=== PATIENT | female | born 1960 ===

== ENCOUNTER 2017-05-10 09:43 | Emergency (ER) | payer MEDICARE, OTHER ==
[2017-05-10 09:49] VITALS: O2SAT 98
[2017-05-10 09:55] VITALS: BMI 21.7
--- NOTE | 2017-05-10 10:26 | ED PDOC ---
HPI: Skin/Bite Injury Chief Complaint (Nursing): Abnormal Skin Integrity History Per: Patient History/Exam Limitations: no limitations Onset/Duration Of Symptoms: Days Current Symptoms Are (Timing): Still Present Location Of Injury: Left: Back, Chest Quality Of Symptoms: Painful Severity: Severe Additional History Per: Family Additional Complaint(s): CC: rash HPI: 57 y/o woman w/ pmh of HTN and HLD presents to ED w/ rash. The patient reports the rash started 1 week ago, burning in nature, and radiates towards her left chest. The patient also reports subjective fever. The patient had no relief from ice and lotions. The patient denies receiving shingles vaccine. The patient denies headaches, chest pain, sOB, abdominal pain, nausea, vomiting , diarrhea, and dysuria. PMH: HTN, HLD, anxiety PSH: 1993 SOC; denies smoking, alcohol, and drugs ROS: negative for 12 points assessed unless otherwsie reported in HPI Past Medical History Vital Signs: Last Vital Signs Temp 97 F L 05/10/17 09:48 Pulse 84 05/10/17 09:48 Resp BP 123/75 05/10/17 09:48 Pulse Ox 98 05/10/17 10:29 - Medical History PMH: HTN, Hypercholesterolemia - Family History Family History: States: Unknown Family Hx - Home Medications Home Medications: Ambulatory Orders Medication Instructions Recorded Acyclovir [Zovirax] 800 mg PO 5XD #50 tablet 05/10/17 Ibuprofen [Motrin] 600 mg PO Q6 PRN #30 tab 05/10/17 - Allergies Allergies/Adverse Reactions: Allergies Allergy/AdvReac Type Severity Reaction Status Date / Time No Known Allergies Allergy Verified 11/04/16 17:32 Review of Systems ROS Statement: Except As Marked, All Systems Reviewed And Found Negative Constitutional: Positive for: Fever. Negative for: Sweats, Weight loss Cardiovascular: Negative for: Chest Pain, Palpitations, Light Headedness Respiratory: Negative for: Cough, Shortness of Breath, Hemoptysis, SOB with Exertion Gastrointestinal: Negative for: Nausea, Vomiting, Abdominal Pain, Diarrhea Genitourinary Female: Negative for: Dysuria Skin: Positive for: Rash, Lesions Neurological: Negative for: Confusion, Seizures, Altered Mental Status, Headache Psych: Positive for: Anxiety Physical Exam - Reviewed Nursing Documentation Reviewed: Yes Vital Signs Reviewed: Yes - Physical Exam Appears: Positive for: No Acute Distress Head Exam: Positive for: ATRAUMATIC, NORMOCEPHALIC Skin: Positive for: Rash (vesicular rash on left back and newer on left chest under left breast) Neck: Positive for: Painless ROM, Supple Cardiovascular/Chest: Positive for: Regular Rate, Rhythm, Chest Non Tender. Negative for: Tachycardia Respiratory: Positive for: Normal Breath Sounds. Negative for: Decreased Breath Sounds, Accessory Muscle Use, Wheezing, Respiratory Distress Pulses-Carotid (L): 2+ Pulses-Carotid (R): 2+ Pulses-Radial (L): 2+ Pulses-Radial (R): 2+ Gastrointestinal/Abdominal: Positive for: Normal Exam, Bowel Sounds, Soft. Negative for: Tenderness Neurologic/Psych: Positive for: Alert, Oriented - ECG O2 Sat by Pulse Oximetry: 98 Medical Decision Making Medical Decision Makin57 y/o woman w/ pmh of HTN and HLD presents to ED w/ rash. Most likely due to shingles acyclovir 800 mg PO 5x daily for 7 days motrin 600 mg PO Q6 w/ food and water #30 Dispo: discharge home, counseled to follow up w/ PMD Disposition - Clinical Impression Clinical Impression: Herpes zoster - Patient ED Disposition Is Patient to be Admitted: No Discussed With .: Yocasta Kaminski - Disposition Referrals: [facility] [Outside] Disposition: Routine/Home Disposition Time: 10:47 Condition: STABLE Prescriptions: Acyclovir [Zovirax] 800 mg PO 5XD #50 tablet Ibuprofen [Motrin] 600 mg PO Q6 PRN #30 tab PRN Reason: Pain, Moderate (4-7) Instructions: Shingles (ED) Print Language: ROMANSH - POA Present On Arrival: None
[2017-05-10 11:02] VITALS: BP 128/78; PULSE 78; RESP 18; TEMP 97.6
== END 2017-05-10 11:02 | disposition home or self-care (01) ==
LOC: H.ER 09:43
DX: B02.9 Zoster without complications (principal); E78.00 Pure hypercholesterolemia, unspecified; I10 Essential (primary) hypertension

== ENCOUNTER 2019-03-04 20:31 | Emergency (ER) | payer MEDICARE ==
[2019-03-04 20:32] VITALS: BMI 21.7
[2019-03-04 20:36] VITALS: BP 148/75; PULSE 74; RESP 16; TEMP 98.3; O2SAT 100
--- NOTE | 2019-03-04 21:09 | ED PDOC ---
Lower Extremity Pain/Injury Time Seen by Provider: 03/04/19 20:41 Chief Complaint (Nursing): Lower Extremity Problem/Injury Chief Complaint (Provider): Lower Extremity Problem/injury History Per: Patient History/Exam Limitations: no limitations Onset/Duration Of Symptoms: Hrs (2x) Current Symptoms Are (Timing): Still Present Severity: Moderate Additional Complaint(s): 59 year old female with a past medical history of osteoporosis presents to the ED for an evaluation of left foot pain that started 2x hours prior to arrival. Patient states that she was walking outside when she stepped into a pothole, twisting her foot outwards, sustaining pain to the anterior aspect of the left foot distal to the left ankle. Patient states she was wearing flat shoes. Patient states that the pain worsens when she applies weight onto it. Patient denies taking medications for pain at home. PMD: Everton Mchugh MD Past Medical History Reviewed: Historical Data, Nursing Documentation, Vital Signs Vital Signs: Last Vital Signs Temp 98.3 F 03/04/19 20:35 Pulse 74 03/04/19 20:35 Resp 16 03/04/19 20:35 BP 148/75 03/04/19 20:35 Pulse Ox 100 03/04/19 20:35 MATHEW Report Viewed: Yes Primary Care Provider: Everton Mchugh - Medical History PMH: HTN, Hypercholesterolemia Other PMH: osteoporosis - Family History Family History: States: No Known Family Hx - Home Medications Home Medications: Ambulatory Orders Medication Instructions Recorded Acyclovir [Zovirax] 800 mg PO 5XD #50 tablet 05/10/17 Ibuprofen [Motrin] 600 mg PO Q6 PRN #30 tab 05/10/17 Ibuprofen [Motrin] 400 mg PO Q6H PRN #30 tab 03/04/19 - Allergies Allergies/Adverse Reactions: Allergies Allergy/AdvReac Type Severity Reaction Status Date / Time No Known Allergies Allergy Verified 03/04/19 20:34 Review of Systems ROS Statement: Except As Marked, All Systems Reviewed And Found Negative Musculoskeletal: Positive for: Other (left foot pain) Physical Exam - Reviewed Nursing Documentation Reviewed: Yes Vital Signs Reviewed: Yes - Physical Exam Appears: Positive for: Well, Non-toxic, No Acute Distress Head Exam: Positive for: ATRAUMATIC, NORMOCEPHALIC Skin: Positive for: Normal Color, Warm, Dry Pulses-Dorsalis Pedis (L): 2+ Pulses-Dorsalis Pedis (R): 2+ Extremity: Positive for: Other (left foot: normal in color, warm. capillary refill <2 seconds. tenderness to anterior aspect of foot and tendernss to plantar surface beneath 2nd and 3rd toes.) Neurological/Psych: Positive for: Awake, Alert, Oriented (3x) - ECG O2 Sat by Pulse Oximetry: 100 (RA) Pulse Ox Interpretation: Normal Medical Decision Making Medical Decision Makin:41 Initial impression: 59 year old female with foot pain status post injury Initial plan: * XRay foot left 3 views * motrin 400 mg PO * reevaluation 21:36 Xray reviewed by me. No obvious fracture. Impression: foot sprain. No further work-up needed in ED. Rx given for Motrin. Monico bandage applied by me. Educated on RICE. wear comfortable fitting shoes. Podiatry Clinic information clinic given increase of further problems with foot. Patient states understanding and agrees with plan. Scribe Attestation: Documented by Delaney Andujar, acting as a scribe for Rolanda Weaver BUSINESS INTELLIGENCE MANAGER. Provider Scribe Attestation: All medical record entries made by the Scribe were at my direction and personally dictated by me. I have reviewed the chart and agree that the record accurately reflects my personal performance of the history, physical exam, medical decision making, and the department course for this patient. I have also personally directed, reviewed, and agree with the discharge instructions and disposition. Disposition - Clinical Impression Clinical Impression: Foot sprain - Patient ED Disposition Is Patient to be Admitted: No Counseled Patient/Family Regarding: Diagnosis, Rx Given - Disposition Referrals: Podiatry Clinic [Outside] Disposition: Routine/Home Disposition Time: 21:39 Condition: GOOD Prescriptions: Ibuprofen [Motrin] 400 mg PO Q6H PRN #30 tab PRN Reason: Pain, Moderate (4-7) Instructions: Foot Sprain (DC) Print Language: FRENCH - POA Present On Arrival: None
--- NOTE | 2019-03-05 17:01 | RAD ---
Date of service: 03/04/2019 PROCEDURE: Left Foot Radiographs. HISTORY: foot injury COMPARISON: None. TECHNIQUE: 3 views obtained. FINDINGS: BONES: No evidence of acute displaced fracture nor dislocation. Questionable postoperative osteotomy changes distal aspect 1st metatarsal and distal aspect proximal phalanx 5th toe. JOINTS: Normal. SOFT TISSUES: Normal. OTHER FINDINGS: None. IMPRESSION: No evidence of acute displaced fracture nor dislocation.
== END 2019-03-04 21:40 | disposition home or self-care (01) ==
LOC: H.ER 20:31
DX: S93.602A Unspecified sprain of left foot, initial encounter (principal); X50.9XXA Other and unspecified overexertion or strenuous movements or postures, initial encounter; Y92.410 Unspecified street and highway as the place of occurrence of the external cause; E78.00 Pure hypercholesterolemia, unspecified; I10 Essential (primary) hypertension; M81.0 Age-related osteoporosis without current pathological fracture